=== PATIENT | female | born 2000 | race Caucasian/White ===

== ENCOUNTER 2022-10-22 14:28 | Inpatient (IN) ==
[2022-10-22] MEDS ORDERED: Lactated Ringers 1000 ml BAG 1,000 ML IV ONE (16:02)
[2022-10-22] MEDS ORDERED: miSOPROStol 100 mcg TAB ONE ×2 (16:02→17:00)
[2022-10-22] MEDS ORDERED: Buffered Lidocaine 1% SYRIN 1 ml INTRADERM ONE (16:02)
[2022-10-22] MEDS ORDERED: Lidocaine 1% VIAL 10 MG/ML 30 ML VIAL INJ PRN (16:02)
[2022-10-22 19:38] LABS: Urine Benzodiazepine Screen None Detected (None Detect); Urine Cannabinoids Screen None Detected (None Detect); Urine Opiates Screen None Detected (None Detect)
[2022-10-22] MEDS ORDERED: miSOPROStol 100 mcg TAB PO ONE (20:30)
[2022-10-22] MEDS: Lactated Ringers 1000 ml BAG 1,000 ML IV SCH (21:00)
[2022-10-22] MEDS ORDERED: Promethazine INJ(RESTRICTED) 25 MG/ML 1 ml VIAL IM PRN (21:01)
[2022-10-22] MEDS ORDERED: Calcium Carb (TUMS) 500 mg CHEW TAB PO PRN (21:02)
[2022-10-22 21:08] LABS: ABS Eosinophils 0.1 10^3/uL (0.0-0.5); ABS Lymphocytes 2.8 10^3/uL (1.0-4.8); ABS Monocytes 0.8 10^3/uL (0.0-0.9); ABS Neutrophils 5.4 10^3/uL (1.5-7.6); ABS Nucleated RBC 0.03 10^3/ul; Eosinophil % 0.9 %; Hemoglobin 11.5 g/dL (11.5-14.3); Lymphocyte % 30.5 %; Mean Corpuscular Hemoglobin 27.1 pg (27-33); Mean Corpuscular Hgb Conc 34.8 g/dL (31-36); Mean Corpuscular Volume 77.9 fL (80-97); Mean Platelet Volume 8.8 fL (7.5-11.2); Nucleated Red Blood Cells % 0.3 /100 WBC (0.0-0.4); Platelet Count 216 10^3/uL (150-450); Red Blood Count 4.24 10^6/uL (3.63-4.92); Red Cell Distribution Width 15.6 % (12-17); White Blood Count 9.1 10^3/uL (3.8-11.8)
[2022-10-23] MEDS ORDERED: fentaNYL 100 mcg/2 ml 50 MCG/ML VIAL IV SLOW PU PRN (01:09)
[2022-10-23] MEDS ORDERED: Oxytocin in LR 20,000 MILLI.UNIT/1,000 ML BAG IV SCH ×2 (01:10→10:30)
[2022-10-23] MEDS ORDERED: Ondansetron 4 mg VIAL 2 MG/ML 2 ml VIAL IV PRN (02:41)
[2022-10-23] MEDS: Lactated Ringers 1000 ml BAG 1,000 ML IV SCH (06:45)
[2022-10-23] MEDS ORDERED: Dibucaine 1% OINT 28.35 GM TUBE PR PRN (10:28)
[2022-10-23] MEDS ORDERED: Glycerin ADULT 2.4 gm SUPP PR PRN (10:28)
[2022-10-23] MEDS ORDERED: Witch Hazel PAD JAR TOPICAL PRN (10:28)
[2022-10-23] MEDS ORDERED: Lactated Ringers 1000 ml BAG 1,000 ML IV SCH (11:00)
[2022-10-24 06:53] LABS: ABS Lymphocytes 2.4 10^3/uL (1.0-4.8); ABS Monocytes 0.9 10^3/uL (0.0-0.9); ABS Neutrophils 8.3 10^3/uL (1.5-7.6); ABS Nucleated RBC 0.01 10^3/ul; Eosinophil % 0.3 %; Hematocrit 29.6 % (35-45); Lymphocyte % 20.6 %; Mean Corpuscular Hemoglobin 26.5 pg (27-33); Mean Corpuscular Hgb Conc 33.9 g/dL (31-36); Mean Corpuscular Volume 78.2 fL (80-97); Nucleated Red Blood Cells % 0.1 /100 WBC (0.0-0.4); Platelet Count 182 10^3/uL (150-450); Red Blood Count 3.79 10^6/uL (3.63-4.92); Red Cell Distribution Width 15.3 % (12-17); White Blood Count 11.6 10^3/uL (3.8-11.8)
[2022-10-24 08:14] VITALS: BP 126/66
== END 2022-10-24 11:22 | disposition home or self-care (01) | DRG 560 ==
LOC: MCHOBOUT 14:28 → MCHOB 14:56
PROVIDERS: ADMIT Midwife; ATTEND Midwife